=== PATIENT | female | born 1985 | race Two or more races ===

== ENCOUNTER → 2017-05-18 | Outpatient (CLI) | payer OTHER | END | disposition home or self-care (01) | LOC: CDC 10:46 | DX: R94.31 Abnormal electrocardiogram [ECG] [EKG] (principal); M79.645 Pain in left finger(s); S63.655A Sprain of metacarpophalangeal joint of left ring finger, initial encounter | CPT/HCPCS: 93000 ==

== ENCOUNTER 2017-06-08 12:29 | Day surgery (SDC) | payer OTHER ==
[~2017-06-08] VITALS: Ht 162.6 cm; Wt 103.4 kg
[~2017-06-08 12:29] MED LIST: ALLERGY RELIEF10 M5 PO; LIPITOR40 MG PO; METFORMIN HCL1000 MG PO; NORVASC10 MG PO
[2017-06-08 13:06] VITALS: BP 138/81
[2017-06-08 13:07] LABS: POINT-OF-CARE METER ID UU14174212
[2017-06-08 15:47] LABS: POINT-OF-CARE METER ID UU13113675; POINT-OF-CARE USER ID 515036437
[2017-06-08 17:38] VITALS: BP 133/67
[2017-06-08 18:11] VITALS: BP 133/69
[2017-06-09 06:55] LABS: INTERNAL CONTROL VALID? YES
== END 2017-06-08 18:20 | disposition home or self-care (01) ==
LOC: SDC 12:29
PROVIDERS: Orthopaedic Surgery Hand Surgery
PROC: 0XQS0ZZ Repair Right Ring Finger, Open Approach (ICD-10-PCS; principal; 2017-06-08)
DX: S63.654A Sprain of metacarpophalangeal joint of right ring finger, initial encounter (principal); I10 Essential (primary) hypertension; E11.9 Type 2 diabetes mellitus without complications; R20.0 Anesthesia of skin; X50.1XXA Overexertion from prolonged static or awkward postures, initial encounter; Y93.83 Activity, rough housing and horseplay; Y92.009 Unspecified place in unspecified non-institutional (private) residence as the place of occurrence of the external cause; Z79.84 Long term (current) use of oral hypoglycemic drugs
CPT/HCPCS: 82948; 84703; J0131; J0690; J1100; J1170; J1885; J2250; J2405; J3010; S0020